=== PATIENT | female | born 1995 | race American Indian/Alaskan Native ===

== ENCOUNTER 2018-09-21 12:08 | Emergency (ER) | payer OTHER ==
--- NOTE | 2018-09-21 12:19 | Event Note ---
ED Screening Note ED Screening Note: pt presents with a sore throat two nights ago +cough, no production +rhinorrhea, +congestion has been taking pseudfed and dayquil +chills, body aches, subjective fever +sick contacts, someone with the flu and sinus infection [facility]MP two weeks ago no PMHx no allergies to meds This initial assessment/diagnostic orders/clinical plan/treatment(s) is/are subject to change based on patients health status, clinical progression and re- assessment by fellow clinical providers in the ED. Further treatment and workup at subsequent clinical providers discretion. Patient/guardian urged not to elope from the ED as their condition may be serious if not clinically assessed and managed. Initial orders include: rapid strep, CXR
[2018-09-21] MEDS ORDERED: IBUPROFEN PO ONE (12:20)
[2018-09-21 12:22] VITALS: BP 123/84
--- NOTE | 2018-09-21 12:48 | XRay Report ---
CHEST 2 VIEWS INDICATION / CLINICAL INFORMATION: cough. COMPARISON: None available. FINDINGS: SUPPORT DEVICES: None. HEART / MEDIASTINUM: No significant abnormality. LUNGS / PLEURA: No significant pulmonary or pleural abnormality. No pneumothorax. ADDITIONAL FINDINGS: No significant additional findings. IMPRESSION: 1. No acute findings. Signer Name: Karri Lara MD Signed: 09/21/2018 12:44 PM Workstation Name: [id number]
--- NOTE | 2018-09-21 14:55 | Emergency Department Report ---
- General Chief Complaint: Upper Respiratory Infection Stated Complaint: COLD SYMPTOMS Time Seen by Provider: 09/21/18 12:17 Source: patient Mode of arrival: Ambulatory Limitations: No Limitations - History of Present Illness MD Complaint: cough, sore throat -: days(s) (3) Severity: moderate Consistency: constant Improves With: nothing Worsens With: nothing Associated Symptoms: fever, chills, myalgias, rhinorrhea, nasal congestion, cough. denies: diaphoresis, headache, stiff neck, chest pain, shortness of breath, abdominal pain, nausea, vomiting, diarrhea, rash, confusion, right sweats, weight loss, hoarseness, ear pain - Related Data Previous Rx's Medication Instructions Recorded Last Taken Type ALBUTEROL Inhaler (OR & NICU) 2 puff IH QID PRN #1 inhalation 09/21/18 Unknown Rx [ProAir HFA Inhaler] Azithromycin [Zithromax Z-KAMARI] 250 mg PO DAILY #6 tablet 09/21/18 Unknown Rx Benzonatate [Tessalon Perles] 100 mg PO Q8HR #10 capsule 09/21/18 Unknown Rx predniSONE [Deltasone] 20 mg PO QDAY #5 tab 09/21/18 Unknown Rx Allergies Allergy/AdvReac Type Severity Reaction Status Date / Time No Known Allergies Allergy Unverified 09/21/18 12:11 ED Review of Systems ROS: Stated complaint: COLD SYMPTOMS Other details as noted in HPI Comment: All other systems reviewed and negative ED Past Medical Hx - Past Medical History Previous Medical History?: No - Surgical History Past Surgical History?: Yes Additional Surgical History: shoulder surgery - Social History Smoking Status: Never Smoker Substance Use Type: None - Medications Home Medications: Home Medications Medication Instructions Recorded Confirmed Last Taken Type ALBUTEROL Inhaler (OR & NICU) 2 puff IH QID PRN #1 inhalation 09/21/18 Unknown Rx [ProAir HFA Inhaler] Azithromycin [Zithromax Z-KAMARI] 250 mg PO DAILY #6 tablet 09/21/18 Unknown Rx Benzonatate [Tessalon Perles] 100 mg PO Q8HR #10 capsule 09/21/18 Unknown Rx predniSONE [Deltasone] 20 mg PO QDAY #5 tab 09/21/18 Unknown Rx ED Physical Exam - General Limitations: No Limitations General appearance: alert, in no apparent distress - Head Head exam: Present: atraumatic, normocephalic - Eye Eye exam: Present: normal appearance - ENT ENT exam: Present: mucous membranes moist - Neck Neck exam: Present: normal inspection - Respiratory Respiratory exam: Present: normal lung sounds bilaterally. Absent: respiratory distress, wheezes, rales, rhonchi - Cardiovascular Cardiovascular Exam: Present: regular rate, normal rhythm, normal heart sounds. Absent: systolic murmur, diastolic murmur, rubs, gallop - GI/Abdominal GI/Abdominal exam: Present: soft, normal bowel sounds. Absent: distended, tenderness, guarding, rebound - Extremities Exam Extremities exam: Present: normal inspection - Back Exam Back exam: Present: normal inspection - Neurological Exam Neurological exam: Present: alert, oriented X3 - Psychiatric Psychiatric exam: Present: normal affect, normal mood - Skin Skin exam: Present: warm, dry, intact, normal color. Absent: rash ED Course Vital Signs 09/21/18 09/21/18 12:20 12:25 Temperature 102.2 F H Pulse Rate 130 H Respiratory 16 18 Rate Blood Pressure 123/84 O2 Sat by Pulse 100 Oximetry ED Medical Decision Making - Radiology Data Chest x-ray within normal limits - Medical Decision Making likely with a viral upper respiratory infection will be started on meds for symptomatic relief . Critical care attestation.: If time is entered above; I have spent that time in minutes in the direct care of this critically ill patient, excluding procedure time. ED Disposition Clinical Impression: Upper respiratory infection Qualifiers: URI type: unspecified URI Qualified Code(s): J06.9 - Acute upper respiratory infection, unspecified Disposition: DC- TO HOME OR SELFCARE Is pt being admited?: No Does the pt Need Aspirin: No Condition: Stable Instructions: Upper Respiratory Infection (ED) Referrals: HAIR COUCH MD [Primary Care Provider] - 3-5 Days Time of Disposition: 14:55
== END 2018-09-21 15:12 | disposition home or self-care (01) ==
LOC: ED 12:08
DX: J06.9 Acute upper respiratory infection, unspecified (principal)
CPT/HCPCS: 71046; 87116; 87430; 99284